=== PATIENT | male | born 1945 | race Caucasian/White ===

== ENCOUNTER 2025-01-13 19:57 | Emergency (ER) | payer MEDICARE, OTHER, SELFPAY ==
[2025-01-13 20:03] VITALS: BP 163/92
[2025-01-13 21:03] VITALS: BMI 29.8
[2025-01-13 22:17] VITALS: BP 155/92
[2025-01-13] MEDS: LET TOPICAL ANESTHETIC GEL 3 ML TOPICAL (22:18)
--- NOTE | 2025-01-13 23:51 | ED.GENMED ---
History of Present Illness
General
Chief Complaint: Skin Surface Trauma
Source: patient
Exam Limitations: none
Time Seen by Provider: 01/13/25 22:57
Nursing documentation reviewed up to this point in time: agreed with
History of Present Illness
History of Present Illness:
79-year-old gentleman with no significant past medical history, takes no medicines on a daily basis presents for evaluation of left upper lip laceration he sustained while cutting a branch off of a tree, the branch fell and struck his left upper
lip. He admits to briefly falling back but denies striking his head, denies loss of consciousness. He denies epistaxis. He denies headache, no neck or back pain, no dizziness nor lightheadedness.
Mild to moderate bleeding initially has stopped with local pressure.
Unsure as to his last Tdap but believes this was at least 10 or more years ago.
Past History
Past History
ED Past Medical History: Other (Kidney stones)
ED Past Surgical History: None
Social History
Tobacco: Non-smoker
Alcohol: None
Drug: None
Personal:
Living: with family
Employment: Employed
Family History
Family History: Other (Noncontributory)
Phy Exam
Physical Exam
Physical Exam:
TRAUMA EXAM:
VITAL SIGNS: Vital signs reviewed, cooperative
DISTRESS: No active disease
EYES: Pupils reactive, no orbital trauma
NOSE: No deformity or epistaxis. There is no nasal tenderness. No soft tissue swelling.
FACE AND SCALP: No scalp trauma, external canals no blood. There is a 3 sonometer laceration left upper lip that extends just at the vermilion border but does not cross the vermilion border and extends to just lateral of the left nasal carmelina but
does not involve the nasal carmelina nor cartilage. Laceration is full-thickness in depth but not a through and through laceration. There is a minute, well vascularized flap at the mid portion of this laceration. No active bleeding. There is very
minimal gingival ecchymosis anteriorly with moderate tenderness anterior gingiva without laceration or bleeding. There is a vertical fracture through the right central incisor�tooth #8. There is a small avulsion laceration of the left canine,
tooth #11. Teeth are otherwise intact without loosening. No malocclusion. No mandibular nor facial bony tenderness.
NECK: Supple nontender, full range of motion without difficulty nor pain.
BACK: Back nontender, pelvis stable to compression
RESPIRATORY: No distress, breath sounds normal, no tender chest wall
CARDIAC: No murmur, pulses equal and strong
ABDOMEN: Soft nontender bowel sounds normal
SKIN: Warm and dry, normal color. Good turgor.
EXTREMITIES: Nontender, full range of motion without difficulty nor pain.
NEUROLOGICAL: Alert, oriented, no motor deficits. Gait is dudley and steady.
PSYCH: Mood affect normal
Course
Orders/Labs/Results
Orders:
Orders
01/13/25 22:12
Lidocaine/Epinephrine/Tetracai [Let Topical Anesthetic Gel] 3 ml TOPICAL NOW STA
01/13/25 22:58
Tetanus/Diphth/Acelpertussis [Adacel] 0.5 ml IM .ONCE ONE
01/13/25 23:09
Sodium Bicarbonate 50 meq .ROUTE .STK-MED ONE
01/13/25 23:50
Cephalexin Monohydrate [Keflex] 500 mg PO NOW STA
Vital Signs
Initial and Last Documented VS:
Initial Vital Signs
Temp Pulse Resp BP Pulse Ox
98.7 F 85 18 163/92 98
01/13/25 20:03 01/13/25 20:03 01/13/25 20:03 01/13/25 20:03 01/13/25 20:03
Last Documented Vital Signs
Temp Pulse Resp BP Pulse Ox
98.7 F 73 18 155/92 95
01/13/25 20:03 01/13/25 22:17 01/13/25 22:17 01/13/25 22:17 01/13/25 22:17
Procedures
Laceration Closure
Left Upper Lip:
Status of Wound: clean
Size of Wound in cm: 3.0
Description of Wound Edges: sharp and other (minute flap at mid portion of laceration)
Preparation: cleaned with saline and cleaned with Betadine
Anesthesia: 1% Lidocaine with epi, added Na Bicarb to local and Topical-LET
Revision/Debridement: routine- no revision and irrigate-direct pressure
Wound exploration: explored to base- no FB and no tendon involvement
Type of Closure: single layer closure
Skin Closure Material: 5-0 prolene
Number of sutures: 12
MDM/Problems Addressed
Differential Diagnosis Includes:
Patient presents with left upper lip/facial trauma with traumatic laceration of the left upper lip that extends to but not through the vermilion border. This is not a through and through laceration.
There is also note of vertical fracture through right central incisor as well as a minute avulsion laceration of the left upper canine. Minimal local dental tenderness but no malocclusion nor loosening.
Patient denies head injury nor loss of consciousness. He remains bright and alert, no headache, no neck nor back tenderness. No facial soft tissue swelling nor significant tenderness to palpation thus no indication for imaging.
Patient has a routine appointment scheduled with his dentist next Saturday but he plans to contact his dentist for prompt follow-up.
Discussed importance of soft diet, avoid biting/avoid hard foods.
Will plan for suture repair of the left upper lip laceration.
Will update Tdap.
Will initiate Keflex for infection prevention.
Will refer to ENT/facial plastics for follow-up as needed as well as suture removal versus follow-up with PCP for suture removal.
Patient noted to be mildly hypertensive initially, improved to 155/92. Encouraged follow-up with PCP to recheck blood pressure.
Recommend Tylenol versus ibuprofen as needed for pain.
*Pulse Oximetry
Patient hypoxic: no (98%)
*Critical Care Note
Total Time (30-74mins, 75-104mins- exclusive of procedures): Not Applicable
ED Attending Note
-
Portions of this chart may have been created with voice recognition software.� Occasional wrong word or��sound alike� substitutions may have occurred due to the inherent limitations of voice recognition software.
Discharge Plan
Departure
Patient Disposition: Home (Routine Discharge)
Date of Disposition: 01/13/25
Time of Disposition: 23:53
Patient with high blood pressure during this ER visit?: Yes
Condition: Good
Discharge Problem:
left upper lip laceration, Fractured tooth, Avulsion fracture of tooth
Instructions: Laceration Repair With Stitches (DC), Fractured Tooth, Tdap vaccine, BLOOD PRESSURE
Prescriptions:
New
cephalexin 500 mg capsule
1,000 mg PO BID 7 Days Qty: 28 0RF
No Action
Vitamin D3:
5,000 unit PO DAILY
ibuprofen [Advil] 200 MG tablet
200 mg PO PRN PRN (Reason: FEVER)
oseltamivir 75 MG capsule
75 mg PO BID Qty: 10 0RF
albuterol sulfate [Proventil HFA] 90 MCG/PUFF HFA aerosol inhaler
1 puff inhalation Q4HPRN PRN (Reason: shortness of breath) Qty: 0 0RF
Referrals:
[facility] [Outside] - Call in 1-3 days for appt
Mauricio Gaming MD [Active, Otology] - Call in 1-3 days for appt
UNKNOWN - PT DOES,NOT KNOW [Family Provider]
Interventions
Interventions:
*Risk Screen - Suicide Last Done: 01/13/25 20:04
*General Assessment Last Done: 01/13/25 21:04
*Neglect/Abuse Screening Last Done: 01/13/25 20:04
*ED- Fall Risk Assessment Last Done: 01/13/25 21:04
*ED COVID-19 Vaccine History Last Done: 01/13/25 21:04
ED-Skin Assessment Last Done: 01/13/25 21:06
Discharge Date and Time
Print Language: LAO
[2025-01-14] MEDS: ADACEL 0.5 ML IM (00:09)
[2025-01-14] MEDS: KEFLEX 500 MG PO (00:09)
== END 2025-01-14 00:17 | disposition home or self-care (01) ==
LOC: EMR 19:57
PROVIDERS: EMERGENCY PHYSICIAN Emergency Medicine
DX: S02.5XXA Fracture of tooth (traumatic), initial encounter for closed fracture (principal); S01.511A Laceration without foreign body of lip, initial encounter; W20.8XXA Other cause of strike by thrown, projected or falling object, initial encounter; Z23 Encounter for immunization
CPT/HCPCS: 90471; 12013; 99282; 90715

== ENCOUNTER 2025-02-05 21:26 | Emergency (ER) | payer MEDICARE, OTHER, SELFPAY ==
[2025-02-05 21:29] VITALS: BP 145/87
--- NOTE | 2025-02-05 23:07 | ED.GENMED ---
History of Present Illness
General
Chief Complaint: Skin Surface Trauma
Source: patient
Exam Limitations: none
Time Seen by Provider: 02/05/25 22:12
Nursing documentation reviewed up to this point in time: agreed with
History of Present Illness
History of Present Illness:
80-year-old male with no reported chronic medical issues presents to the ER for evaluation of a right hand injury. 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
right ring finger. Came to the ER for evaluation. He says his tetanus is up-to-date. No other injuries or complaints.
Past History
Past History
ED Past Medical History: Other (Kidney stones)
ED Past Surgical History: None
Social History
Tobacco: Non-smoker
Alcohol: None
Drug: None
Personal:
Living: with family
Employment: Employed
Family History
Family History: Other (Noncontributory)
Review of Systems
Review of Systems
All Other Systems: ROS reviewed and negative except as documented in HPI and ROS
Skin: Reports other (Finger injury)
Phy Exam
Physical Exam
Physical Exam:
General: Awake, alert, oriented x3; no acute distress
Head: Normocephalic, atraumatic
Eyes: Conjunctiva normal
Throat: Airway intact, handling secretions
Neck: Trachea midline, supple without meningismus
Lungs: Breathing comfortably no distress
Heart: Regular rate
Skin: Patient has a 3 cm gaping laceration on the palmar aspect of the right fourth digit between the PIP and DIP joints�no exposed tendon on exploration of the wound
Extremities: Laceration of the finger as above, swelling of the finger and diffuse tenderness with some crepitus
Scores
Heart Failure Risk
Heart Failure Risk Score: Not Applicable
Heart Score for Chest Pain Patients
STEMI patient?: Not applicable
Withdrawal Assessment of Alcohol
Withdrawal Assessment Completed?: Not applicable
Course
Orders/Labs/Results
Orders:
Orders
02/05/25 22:19
CR Hand - Right Min 3 Views Urgent
Comment:
Reason For Exam: laceration right 3rd digit
02/06/25 00:22
CeFAZolin 2 GRAM [Ancef] 2 grams in 10 ml IV NOW
02/06/25 01:08
Complete Blood Count/With Diff Urgent
Comprehensive Metabolic Panel Urgent
Abnormal Lab Results
02/06/25
01:08
MPV 10.7 H fL
(7.4-10.4)
Absolute Monos (auto) 0.8 H 10^3/uL
(0.1-0.6)
Monocytes % 11.2 H %
(1.7-9.3)
Chloride 108 H mmol/L
(98-107)
BUN 23 H mg/dl
(9-20)
Glucose 108 H mg/dl
(70-99)
Alkaline Phosphatase 169 H U/L
(38-126)
02/06/25 01:08
02/06/25 01:08
Vital Signs
Initial and Last Documented VS:
Initial Vital Signs
Temp Pulse Resp BP Pulse Ox
36.4 C 85 18 145/87 96
02/05/25 21:29 02/05/25 21:29 02/05/25 21:29 02/05/25 21:29 02/05/25 21:29
Last Documented Vital Signs
Temp Pulse Resp BP Pulse Ox
36.4 C 85 18 145/87 96
02/05/25 21:29 02/05/25 21:29 02/05/25 21:29 02/05/25 21:29 02/05/25 23:08
Procedures
Laceration Closure
Right Fourth Finger(s):
Status of Wound: dirty
Size of Wound in cm: 4
Description of Wound Edges: ragged
Preparation: cleaned with Betadine
Anesthesia: 1% Lidocaine and Digital-Regional
Revision/Debridement: minor revision
Wound exploration: no tendon involvement
Type of Closure: single layer closure
Skin Closure Material: 5-0 nylon (7)
Number of sutures: 7
MDM/Problems Addressed
Differential Diagnosis Includes:
High-pressure injection injury
MDM/Problems Addressed:
80-year-old male presents with a high-pressure injection injury to the right fourth digit. He has some swelling and crepitus in the digit and a large laceration. Tetanus is up-to-date. Vital signs and exam as above. He was sent for an x-ray
which showed subcutaneous emphysema throughout the fourth digit. Laceration was repaired as documented procedure note. Case discussed with orthopedist who recommended transfer to trauma center with dedicated hand service given high risk of
infection, compartment syndrome. Recommended splinting and IV antibiotics to start. Was placed in a finger splint in slight flexion and treat with IV Ancef. Patient requested transfer to [facility] for trauma.
Discussed with trauma physician, hand surgeon, ER physician at [facility]--patient was accepted for transfer.
Patient requesting to drive via private vehicle rather than wait for EMS transport. I explained risks and he is insisting on driving himself. He was given his transfer packet in hand and will drive via private vehicle.
*Radiology
Radiology exam reviewed: preliminary read by ED provider
*Pulse Oximetry
SaO2: 96
Oxygen Mode of Delivery: Room air
Patient hypoxic: no (96%)
*Critical Care Note
Total Time (30-74mins, 75-104mins- exclusive of procedures): Not Applicable
Data Reviewed
Source: patient and records
Patient Management
Discussion with other providers: Emergency Telecommunications Dispatcher (Discussed with orthopedist)
Escalation/DeEscalation of care consider admission/obs:
Admission indicated�transfer to trauma center
ED Attending Note
-
Portions of this chart may have been created with voice recognition software.� Occasional wrong word or��sound alike� substitutions may have occurred due to the inherent limitations of voice recognition software.
Discharge Plan
Departure
Patient Disposition: Home (Routine Discharge)
Date of Disposition: 02/06/25
Time of Disposition: 00:22
Patient with high blood pressure during this ER visit?: Yes
Discharge Problem:
High-pressure injection injury of finger, Finger laceration
Prescriptions:
No Action
Vitamin D3:
5,000 unit PO DAILY
ibuprofen [Advil] 200 MG tablet
200 mg PO PRN PRN (Reason: FEVER)
oseltamivir 75 MG capsule
75 mg PO BID Qty: 10 0RF
albuterol sulfate [Proventil HFA] 90 MCG/PUFF HFA aerosol inhaler
1 puff inhalation Q4HPRN PRN (Reason: shortness of breath) Qty: 0 0RF
cephalexin 500 mg capsule
1,000 mg PO BID 7 Days Qty: 28 0RF
Referrals:
UNKNOWN - PT DOES,NOT KNOW [Family Provider]
Hospital Transfer
Other hospital: [facility]
I certify that the patient requires transfer: Yes
Discussed case with accepting physician: Dr. Pan/Natalia
Reason for transfer: specialties available
Interventions
Interventions:
*Risk Screen - Suicide Last Done: 02/05/25 21:29
*General Assessment Last Done: 02/05/25 21:55
*Neglect/Abuse Screening Last Done: 02/05/25 21:29
*ED- Fall Risk Assessment Last Done: 02/05/25 21:55
*ED COVID-19 Vaccine History Last Done: 02/05/25 21:55
ED-Skin Assessment Last Done: 02/06/25 01:54
Discharge Date and Time
Print Language: [place]
[2025-02-06] MEDS: ANCEF 10 IV (01:09)
[2025-02-06 01:32] LABS: Hematocrit 44.9 % (39.0-52.0); Hemoglobin 15.0 g/dL (13.0-18.0); Mean Corp Hgb Conc. 33.4 g/dL (33.0-37.0); Mean Corpuscular Volume 91.6 fL (80.0-94.0); Nucleated Red Blood Cells % 0 % (-); Platelet Count 180 10^3/uL (130-400); Red Cell Dist. Width 13.9 % (11.5-14.5)
[2025-02-06 01:36] LABS: ALT (SGPT) 15 U/L (0-50); AST (SGOT) 23 U/L (17-59); Albumin 4.5 g/dl (3.5-5.0); Alkaline Phosphatase 169 U/L (38-126); Blood Urea Nitrogen 23 mg/dl (9-20); Calcium 9.6 mg/dl (8.4-10.2); Carbon Dioxide 24 mmol/L (22-30); Chloride 108 mmol/L (98-107); Glucose 108 mg/dl (70-99); Potassium 3.9 mmol/L (3.5-5.1); Sodium 140 mmol/L (135-145); Total Protein 7.5 g/dl (6.3-8.2); eGFR > 60.00
== END 2025-02-06 02:56 | disposition home or self-care (01) ==
LOC: EMR 21:26
PROVIDERS: EMERGENCY PHYSICIAN Emergency Medicine
DX: S61.214A Laceration without foreign body of right ring finger without damage to nail, initial encounter (principal); W29.8XXA Contact with other powered hand tools and household machinery, initial encounter
CPT/HCPCS: 12002; 99284; 96374; 73130; 80053; 85025